=== PATIENT | male | born 1960 | race Caucasian/White ===

== ENCOUNTER 2016-08-28 05:55 | Inpatient (IN) | payer OTHER ==
[2016-08-28] VITALS (7 sets, daily range): BP systolic 114–138; BP diastolic 78–98
[~2016-08-28] VITALS: Ht 177.8 cm; Wt 104.3 kg
[~2016-08-28 05:55] MED LIST: ALBUTEROL0.09 MG/A1 INH; AMLODIPINE BESYL5 M1 PO; BENTYL10 MG PO; FLONASE ALLERG9.9 ML NASB; IMODIUM2 MG PO; LISINOPRIL-HCT1 EAC1 PO; NEXIUM40 M1 PO; NORCO 325 MG-51 TAB PO; SYMBICORT 160/41 PUF INH; SYNTHROID100 MCG PO; VIAGRA25 M1 PO; ZITHROMAX Z-PA250 M1 PO; ZOFRAN4 M1 PO
--- NOTE | 2016-08-28 06:30 | ED PSYCHIATRIC COMPLAINT ---
History of Present Illness General Chief Complaint: General Adult Stated Complaint: WITHDRAWAL FROM ETOH, NUMBNESS IN HANDS/FEET Source: patient, family Exam Limitations: no limitations Vital Signs & Intake/Output Vital Signs & Intake/Output Vital Signs Date Time Temp Pulse Resp B/P B/P Pulse O2 O2 Flow FiO2 Mean Ox Delivery Rate 08/28 1048 97.6 92 20 126/87 08/28 1048 97.6 92 20 126/87 96 Room Air 08/28 0900 97.6 88 20 119/81 08/28 0900 97.6 88 20 119/81 96 Room Air 08/28 0700 97.5 106 20 120/85 08/28 0700 97.5 106 20 120/85 98 Room Air 08/28 0603 97.9 107 20 141/97 95 Room Air Allergies Coded Allergies: NO KNOWN ALLERGIES (07/25/14) Triage Note: Requesting EtOH denies SI states 9 glasses of wine daily last drink was yesterday at 7 PM PT TO ED FROM HOME REQUESTING ETOH DETOX. PT DENIES SI/HI. STATES DRINKS 6-9 GLASSES OF WINE DAILY. LAST DRINK WAS YESTERDAY AT 7 PM. 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 STATES HANDS GET NUMB ANF TINGLY WHEN ALCOHOL LEVEL GETS LOW. DENIES HISTORY OF SEIZURES WITH ETOH WITHDRAWL BUT STATES HE HAS BEEN DRINKINGT MORE THE LAST FEW YEARS. DENIES DRUG USE. PER GIRLFRIEND "HE SAID HE WOULD BLOW HIS BRAINS OUT" PER GIRLFRIEND "HE HAS GUNS IN THE HOUSE" Triage Nurses Notes Reviewed? yes Onset: Gradual Duration: continues in ED Severity: severe HPI: Patient presents for evaluation of alcohol dependence and possible withdrawal. Patient typically drinks 6-8 glasses of wine daily and states his last alcoholic beverage was yesterday evening. He is beginning to feel numbness and tingliness in the extremities he states his typical of early withdrawal symptoms. He denies SI or HI. Patient states that he did have about a year and a half of sobriety number of years ago but then began drinking again due to multiple life stressors. Patient denies any prior history of alcohol withdrawal seizures. (MALA BUSCH,CORWIN Osborne) Reconcile Medications Amlodipine Besylate 5 MG TABLET 1 TAB PO DAILY BP (Reported) Ascorbate Calcium (Vitamin C) 500 MG TABLET 1 TAB PO DAILY VITAMIN SUPPORT ( Reported) Aspirin (Aspirin*) 81 MG TAB.CHEW 1 TAB PO DAILY HEART HEALTH (Reported) Dicyclomine HCl 10 MG CAPSULE 1 TAB PO 4 TIMES/DAY PRN GI (Reported) Esomeprazole (Nexium) 40 MG CAPSULE.DR 1 CAP PO DAILY ACID REFLUX (Reported) Fluticasone Propionate (Flonase Allergy Relief) 50 MCG/ACTUATION SPRAY.SUSP 2 SPRAY NASB DAILY ALLERGIES (Reported) Levothyroxine Sodium (Synthroid) 100 MCG TABLET 1 TAB PO DAILY AC THYROID ( Reported) Lisinopril/Hydrochlorothiazide (Lisinopril-Hctz 20-25 MG Tab) 20 MG-25 MG TABLET 1 TAB PO BID BP (Reported) Multivitamin (Daily Multiple Vitamin) 1 EACH TABLET 1 TAB PO DAILY VITAMIN SUPPORT (Reported) (CHANDLER LUNA MD) Past History Travel History Traveled to [place] past 21 day No Medical History Any Pertinent Medical History? see below for history Cardiovascular: hypertension, syncope, 2 EPISODES OF SYNCOPE. tHE 01/31/2014 AND ONE APPROXIMATELY 2 MONTHS LATER FOR WHICH HE REFUSED TRANSPORT TO THE EMERGENCY DEPARTMENT BY ems. Gastrointestinal: GERD Endocrine: hypothyroidism Surgical History Surgical History: non-contributory Psychosocial History What is your primary language Romanian Tobacco Use: Never used ETOH Use: alcoholic Illicit Drug Use: denies illicit drug use Family History Hx Contributory? No (MALA BUSCH,CORWIN Osborne) Review of Systems Review of Systems Constitutional: Reports: no symptoms. EENTM: Reports: no symptoms. Respiratory: Reports: no symptoms. Cardiovascular: Reports: no symptoms. GI: Reports: no symptoms. Genitourinary: Reports: no symptoms. Musculoskeletal: Reports: no symptoms. Skin: Reports: no symptoms. Neurological/Psychological: Reports: paresthesia. Hematologic/Endocrine: Reports: no symptoms. Immunologic/Allergic: Reports: no symptoms. All Other Systems: Reviewed and Negative (MALA BUSCH,CORWIN Osborne) Physical Exam Physical Exam General Appearance: SEE BELOW Neurological/Psychiatric: SEE BELOW Comments: General: Alert, calm, cooperative Head: Normocephalic, atraumatic Eyes: Normal inspection, no nystagmus, EOMI Ears: Normal inspection Nose: Normal inspection Throat: Moist mucosa Neck: Supple, no goiter Heart: Regular rate and rhythm, no murmurs rubs or gallops Lungs: Clear to auscultation bilaterally with good air entry Abdomen: Soft nontender nondistended, normal bowel sounds Chest: Nontender Extremities: Normal range of motion grossly, mild tremors present, no cyanosis clubbing or edema of the upper extremities Neurologic: cranial nerves II through XII grossly intact, speech clear, gait normal Psychiatric: No apparent delusions or hallucinations, no pressured speech or thought blocking SAD PERSONS Done? patient not suicidal (MALA BUSCH,CORWIN Osborne) Progress Differential Diagnosis: ALCOHOL INTOXICATION, ALCOHOL DEPENDENCE, ALCOHOL WITHDRAWAL Plan of Care: Orders Procedure Date/time Status Regular Diet 08/28 L Active Pathway - chart 08/28 1129 Active House Staff 08/28 1129 Active Patient Data 08/28 1129 Active Code Status 08/28 1129 Active Patient Data 08/28 1124 Active OXYGEN SETUP (GEN) 08/28 1112 Active Saline Lock 08/28 1112 Active Admit to inpatient 08/28 1112 Active Vital Signs 08/28 1112 Active Activity/Ambulation 08/28 1112 Active Code Status 08/28 1112 Complete CIWA 08/28 0630 Active URINE DRUG SCREEN FOR ER ONLY 08/28 0630 Complete MAGNESIUM 08/28 0630 Complete LIPASE 08/28 0630 Complete ETHANOL 08/28 0630 Complete COMPREHENSIVE METABOLIC PANEL 08/28 0630 Complete CBC WITHOUT DIFFERENTIAL 08/28 0630 Complete VTE Mechanical Prophylaxis 08/28 UNK Active Vital Signs 08/28 UNK Active MISTAKE 08/28 UNK Active Intake & Output 08/28 UNK Active Current Medications Sig/Adry Start time Last Medication Dose Stop Time Status Admin Lorazepam 2 MG Q2P PRN 08/28 1115 AC 08/28 (Ativan) 1050 Lorazepam 1 MG Q2P PRN 08/28 1115 AC (Ativan) Laboratory Tests 08/28/16 0718: Serum Alcohol 13.0 08/28/16 0718: Anion Gap 14, Estimated GFR > 60, BUN/Creatinine Ratio 29.0 H, Glucose 140 H, Calcium 9.9, Magnesium 1.6, Total Bilirubin 0.6, AST 126 H, ALT 181 H, Alkaline Phosphatase 108, Total Protein 8.0, Albumin 4.9, Globulin 3.1, Albumin/ Globulin Ratio 1.6, Lipase 256, CBC w Diff NO MAN DIFF REQ, RBC 4.87, MCV 93.1, MCH 32.0 H, RDW 12.8, MPV 7.8, Gran % 57.1, Lymphocytes % 32.6, Monocytes % 8.5 , Eosinophils % 1.2, Basophils % 0.6, Absolute Granulocytes 3.6, Absolute Lymphocytes 2.1, Absolute Monocytes 0.5, Absolute Eosinophils 0.1, Absolute Basophils 0, PUBS MCHC 34.4, Urine Opiates Screen < 100.00, Methadone Screen < 40, Barbiturate Screen < 60, Ur Phencyclidine Scrn < 6.00, Amphetamines Screen < 100, U Benzodiazepines Scrn < 85, Urine Cocaine Screen < 50, Urine Cannabis Screen < 5.00 Comments: 08/28/2016 7:07:29 AM 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 (MALA BUSCH,CORWIN Osborne) Comments: CiWA >16. (CHANDLER LUNA MD) Departure Departure Disposition: STILL A PATIENT Condition: Stable Referrals: ALYSON ASHLEY MD (PCP/Family) Departure Forms: Customer Survey General Discharge Information (MALA BUSCH,CORWIN Osborne) Departure Time of Disposition: 113 Clinical Impression Primary Impression: Alcohol withdrawal delirium Secondary Impressions: Alcohol dependence Qualifiers: Substance use status: in withdrawal Complication of substance- induced condition: with perceptual disturbance Qualified Code: F10.232 - Alcohol dependence with withdrawal with perceptual disturbance Admission Note Spoke With: KOBI BUSCH,MICHAELA Documentation of Exam: Documentation of any treatments & extenuating circumstances including Concerns Regarding Discharge (functional status, medication knowledge or non-compliance, living conditions, etc.) that warrant an admission rather than observation: Benzodiazepine to prevent alcohol withdrawal seizure medication adjustment psychiatric evaluation for alcohol dependence continuing care discharge planning Alcohol Withdrawl Admission ED Alcohol Detox Admission d/t: CIWA Score >15, Acute MedCond D/T Alcohol, Alcohol Hallucinosis (CHANDLER LUNA MD)
[2016-08-28 07:29] LABS: ABSOLUTE BASOPHIL COUNT 0 /CUMM (0.0-0.2); ABSOLUTE EOSINOPHIL COUNT 0.1 /CUMM (0.0-0.7); ABSOLUTE GRANULOCYTE CT 3.6 /CUMM (1.4-6.5); ABSOLUTE LYMPH COUNT 2.1 /CUMM (1.2-3.4); ABSOLUTE MONOCYTE COUNT 0.5 /CUMM (0.10-0.60); BASOPHIL % 0.6 % (0.0-2.0); EOSINOPHIL % 1.2 % (0-5); GRANULOCYTE % 57.1 % (42.2-75.2); HEMATOCRIT 45.3 % (42-52); MEAN CORPUSCULAR HGB CONC 34.4 G/DL (33.0-37.0); MEAN CORPUSCULAR VOLUME 93.1 FL (80.0-94.0); MEAN PLATELET VOLUME 7.8 FL (7.4-10.4); PLATELET COUNT 242 /CUMM (130-400); RBC DISTRIBUTION WIDTH 12.8 % (11.5-14.5); RED BLOOD CELL CT 4.87 /CUMM (4.70-6.10); WHITE BLOOD CELL COUNT 6.3 /CUMM (4.8-10.8)
[2016-08-28] MEDS ORDERED: ASPIRIN81 M4 PO (08:26)
[2016-08-28] MEDS ORDERED: DAILY MULTIPLE1 EACH PO (08:28)
[2016-08-28] MEDS ORDERED: VITAMIN C500 M6 PO (08:28)
[2016-08-28] MEDS ORDERED: DICYCLOMINE HCL10 M1 PO (08:29)
--- NOTE | 2016-08-28 11:28 | History & Physical ---
LELA HARRIS 08/28/16 1128: General Information and HPI MD Statement: I have seen and personally examined CARMENBRIGETTEGORDO and documented this H&P. The patient is a 55 year old M who presented for alcohol detox. Source of Information: patient Exam Limitations: no limitations History of Present Illness: This is a 55-year-old gentleman with past medical history significant for hypertension, GERD, hypothyroidism, EtOH dependence who presents to the hospital for alcohol detox. Per patient, he usually drinks approximately 6-8 glasses of wine every day, last drink was yesterday around 7 PM. Denies any history of alcohol withdrawal. Reports having numbness and tingling in his hands and feet for the past 2 weeks; symptoms improved after drinking alcohol. Reports having unsteady gait for the past few months and mentions that he starts shaking upon standing. Also has mild lower abdominal pain, which is chronic, follows with Dr. Lake. Denies any history of dysarthria, facial droop, denies headache, shortness of breath, chest pain, history of fall, urinary symptoms. Denies SI, HI. Of note he was recently diagnosed with prediabetes. Allergies/Medications Allergies: Coded Allergies: NO KNOWN ALLERGIES (07/25/14) Home Med list Amlodipine Besylate 5 MG TABLET 1 TAB PO DAILY BP (Reported) Aspirin (Aspirin*) 81 MG TAB.CHEW 1 TAB PO DAILY HEART HEALTH (Reported) Dicyclomine HCl 10 MG CAPSULE 1 TAB PO 4 TIMES/DAY PRN GI (Reported) Esomeprazole (Nexium) 40 MG CAPSULE.DR 1 CAP PO DAILY ACID REFLUX (Reported) Fluticasone Propionate (Flonase Allergy Relief) 50 MCG/ACTUATION SPRAY.SUSP 2 SPRAY NASB DAILY ALLERGIES (Reported) Levothyroxine Sodium (Synthroid) 100 MCG TABLET 1 TAB PO DAILY AC THYROID ( Reported) Lisinopril/Hydrochlorothiazide (Lisinopril-Hctz 20-25 MG Tab) 20 MG-25 MG TABLET 1 TAB PO BID BP (Reported) Loratadine (Claritin) 10 MG TABLET 1 TAB PO DAILY ALLERGY (Reported) Multivitamin (Daily Multiple Vitamin) 1 EACH TABLET 1 TAB PO DAILY VITAMIN SUPPORT (Reported) Past History Travel History Traveled to [place] past 21 day No Medical History Cardiovascular: hypertension, syncope, 2 EPISODES OF SYNCOPE. tHE 01/31/2014 AND ONE APPROXIMATELY 2 MONTHS LATER FOR WHICH HE REFUSED TRANSPORT TO THE EMERGENCY DEPARTMENT BY [facility]. Gastrointestinal: GERD Endocrine: hypothyroidism Surgical History Surgical History: non-contributory Past Family/Social History Psychosocial History ETOH Use: alcoholic Illicit Drug Use: denies illicit drug use Review of Systems Review of Systems Constitutional: Reports: no symptoms. Cardiovascular: Denies: chest pain, edema, orthopena, palpitations, peripheral edema, syncope. Respiratory: Reports: no symptoms. GI: Reports: see HPI, abdominal pain. Denies: diarrhea, distention, bowel incontinence, nausea, bloody stool, changes in stool, vomiting, steatorrhea. Genitourinary: Reports: no symptoms. Musculoskeletal: Reports: no symptoms. Skin: Reports: no symptoms. Neurological/Psychological: Reports: no symptoms. Hematologic/Endocrine: Reports: no symptoms. Immunologic/Allergic: Reports: no symptoms. All Other Systems: Reviewed and Negative Exam & Diagnostic Data Last 24 Hrs of Vital Signs/I&O Vital Signs Date Time Temp Pulse Resp B/P B/P Pulse O2 O2 Flow FiO2 Mean Ox Delivery Rate 08/28 1222 97.6 91 18 138/90 96 Room Air 08/28 1221 97.6 91 18 138/90 08/28 1048 97.6 92 20 126/87 08/28 1048 97.6 92 20 126/87 96 Room Air 08/28 0900 97.6 88 20 119/81 08/28 0900 97.6 88 20 119/81 96 Room Air 08/28 0700 97.5 106 20 120/85 08/28 0700 97.5 106 20 120/85 98 Room Air 08/28 0603 97.9 107 20 141/97 95 Room Air Intake & Output 08/28 1600 08/28 0800 08/28 0000 Intake Total 0 Output Total Balance 0 Intake, Oral 0 Patient 228 lb Weight Physical Exam General Appearance Alert, Oriented X3, Cooperative, anxious Skin No Rashes, No Breakdown, No Significant Lesion HEENT Atraumatic, PERRLA, EOMI, Mucous Membr. moist/pink Neck Supple, No JVD, No thryomegaly, +2 Carotid Pulse wo Bruit, No LAD Lymphatic Axillary nl, Cervical nl Cardiovascular Regular Rate, Normal S1, Normal S2, No Murmurs, Gallops, Rubs Lungs Clear to Auscultation, Normal Air Movement Abdomen Normal Bowel Sounds, Soft, No Tenderness, No Hepatospenomegaly, No Masses Neurological Normal Speech, Strength at 5/5 X4 Ext, Normal Tone, Sensation Intact, Cranial Nerves 3-12 NL, Reflexes 2+, no resting tremor Extremities No Clubbing, No Cyanosis, No Edema, Normal Pulses, No Tenderness/ Swelling Vascular Normal Pulses, Pulses Symmetrical Last 24 Hrs of Labs/Gerard: Laboratory Tests 08/28/16717: Serum Alcohol 13.0 08/28/16717: Anion Gap 14, Estimated GFR > 60, BUN/Creatinine Ratio 29.0 H, Glucose 140 H, Calcium 9.9, Magnesium 1.6, Total Bilirubin 0.6, AST 126 H, ALT 181 H, Alkaline Phosphatase 108, Total Protein 8.0, Albumin 4.9, Globulin 3.1, Albumin/ Globulin Ratio 1.6, Lipase 256, Vitamin B12 Pending, Folate Pending, CBC w Diff NO MAN DIFF REQ, RBC 4.87, MCV 93.1, MCH 32.0 H, RDW 12.8, MPV 7.8, Gran % 57.1 , Lymphocytes % 32.6, Monocytes % 8.5, Eosinophils % 1.2, Basophils % 0.6, Absolute Granulocytes 3.6, Absolute Lymphocytes 2.1, Absolute Monocytes 0.5, Absolute Eosinophils 0.1, Absolute Basophils 0, PUBS MCHC 34.4, Urine Opiates Screen < 100.00, Methadone Screen < 40, Barbiturate Screen < 60, Ur Phencyclidine Scrn < 6.00, Amphetamines Screen < 100, U Benzodiazepines Scrn < 85, Urine Cocaine Screen < 50, Urine Cannabis Screen < 5.00 Assessment/Plan Assessment: This is a 55-year-old gentleman with past medical history significant for hypertension, GERD, hypothyroidism, EtOH dependence who presents to the hospital for alcohol detox. Labs: Transaminitis, glucose 140 otherwise unremarkable, Abdominal ultrasound on June 14 shows diffuse heterogeneous abnormal echotexture is noted within the liver, consistent with diffuse liver disease without any sonographic detectable superimposed discrete focal abnormality.Sonographically unremarkable gallbladder and biliary tree. Problem list * EtOH dependence * Numbness/tingling in upper and lower extremities * Transaminitis * Lower abdominal discomfort * History of hypertension * History of hypothyroidism * History of GERD Plan * Vital signs per protocol * IV Ativan per CIWA * PO Ativan 2 mg every 6 hr * Will check magnesium, folate, vitamin B12 levels * Will check head CT * Will continue home medications of aspirin, lisinopril, hydrochlorothiazide, levothyroxine * consider neurology consult if numbness/tingling not improve/worsen * Psych consult * Social consult * DVT and GI prophylaxis * Patient is full code As Ranked By This Provider Problem List: 1. Alcohol dependence Qualifiers Substance use status: in withdrawal Complication of substance-induced condition : with perceptual disturbance Qualified Code: F10.232 - Alcohol dependence with withdrawal with perceptual disturbance Core Measures/Miscellaneous Acute Coronary Syndrome ACS Diagnosis: No Cerebrovascular Accident CVA/TIA Diagnosis: No Congestive Heart Failure CHF Diagnosis: No VTE (View Protocol) VTE Risk Factors: Age > 40 [facility] d/t: No contraindications No VTE Pharm Prophylaxis d/t: No contraindications VTE Diagnosis: No VTE Type: NONE VTE Confirmed by (Test): NONE Sepsis (View Protocol) Severe Sepsis Present: No Septic Shock Septic Shock Present: No Miscellaneous Documentation Attending Case Discussed With: AURORA LANE MD Primary Care Physician: ALYSON ASHLEY MD Patient sees these Specialists GI Level of Patient Care: General Medicine AURORA LANE MD 08/28/16 1652: Attending MD Review Statement Attending Statement Attending MD Statement: examined this patient, discuss w/resident/PA/RESEARCH CHEF, agreed w/resident/PA/RESEARCH CHEF, reviewed EMR data (avail) Attending Assessment/Plan: 55M PMH EtOH abuse presenting with hand numbness and paresthesia, unsteady gait, and agitation in the setting of alcohol withdrawal. Labs unremarkable, CT head shows mild cerebral atrophy inappropriate for patient's age. Plan - Admit to general medicine - Ativan taper and PRN - IV hydration - Monitor electrolytes - Check TSH, B12 - Outpatient neurology follow up - SOcial work consult - DVT Ppx
[2016-08-28] MEDS ORDERED: CLARITIN10 M1 PO (11:44)
--- NOTE | 2016-08-28 13:36 | CT SCAN REPORT ---
EXAMINATION: CT HEAD WITHOUT CONTRAST CLINICAL INFORMATION: Numbness and tingling in extremities. COMPARISON: The report from 02/25/2014 is reviewed. Images are not available for immediate comparison. TECHNIQUE: Contiguous axial images of the brain were obtained without IV contrast. DLP: 641 mGy-cm. FINDINGS: There are no pathologic extra-axial fluid collections. The lateral, third, fourth ventricles are mildly prominent and concordant with the appearance of the sulci. There is no evidence for acute intraparenchymal hemorrhage or infarct. There is neither mass nor mass effect. There is no shift of midline structures. The paranasal sinuses and mastoid air cells are clear. There are no osseous lesions. IMPRESSION: No evidence for acute intracranial injury. There is mild cerebral atrophy, equivocally advanced in consideration of the patient's age.
--- NOTE | 2016-08-28 16:53 | Admission Certification ---
Admission Certification Certification Statement - As attending physician, I certify that at the time of - admission, based on clinical presentation, severity of - symptoms, need for further diagnostic testing and - therapeutic interventions, and risk of adverse outcomes - without in-hospital treatment, in my clinical assessment, - this patient requires an acute hospital stay for a minimum - of two nights or longer. I have also considered psychsocial - factors such as support system, advanced age, financial - issues, cognitive issues, and failed out-patient treatments, - past re-admission history, safety of patient, and lack of - compliance as applicable. Specific rationale supporting this admission is: Alcohol withdrawal with unsteady gait and focal neurological signs
[2016-08-29] VITALS (8 sets, daily range): BP systolic 122–138; BP diastolic 84–98
--- NOTE | 2016-08-29 07:07 | PN- Housestaff ---
TK BUSCH,MILADYS 08/29/16 0706: Subjective Follow-up For: Alcohol withdrawl Subjective: I saw and examined the patient today monring He is lying in the bed, reports his night was good. He is very distressed about his pain and instablility with walking. Currently he denies any lightheadedness and dizziness with walking. Subjective pins and needles sensation in both the hands. His CIWA scores overnight are between 3-8, highest being 16 yesterday morning. Review of Systems Constitutional: Reports: see HPI. Comments: ROS negative except the above. Objective Last 24 Hrs of Vital Signs/I&O Vital Signs Date Time Temp Pulse Resp B/P B/P Pulse O2 O2 Flow FiO2 Mean Ox Delivery Rate 08/29 0606 97.7 86 22 128/86 95 08/29 0536 76 124/84 08/29 0400 97.8 76 22 124/84 08/29 0200 97.8 76 22 124/84 08/29 0152 97.8 76 22 124/84 92 Room Air 08/29 0000 98.1 80 19 138/98 08/28 2151 98.1 80 19 138/98 95 Room Air 08/28 1715 98.3 94 18 122/78 08/28 1715 98.3 94 18 122/78 95 Room Air 08/28 1714 94 122/78 08/28 1310 98.5 100 20 114/90 92 Room Air 08/28 1222 97.6 91 18 138/90 96 Room Air 08/28 1221 97.6 91 18 138/90 08/28 1048 97.6 92 20 126/87 08/28 1048 97.6 92 20 126/87 96 Room Air 08/28 0900 97.6 88 20 119/81 08/28 0900 97.6 88 20 119/81 96 Room Air Intake & Output 08/29 0800 08/29 0000 08/28 1600 Intake Total 490 1700 Output Total Balance 490 1700 Intake, IV 10 1000 Intake, Oral 480 700 Number 0 Bowel Movements Patient 104.326 kg Weight Physical Exam General Appearance: Alert, Oriented X3, Cooperative, No Acute Distress Skin: No Rashes, No Breakdown HEENT: Atraumatic, PERRLA, EOMI Neck: Supple Cardiovascular: Normal S1, Normal S2 Lungs: Clear to Auscultation, Normal Air Movement Abdomen: Normal Bowel Sounds, Soft, No Tenderness Neurological: Normal Speech, Sensation Intact Current Medications: Current Medications Sig/Adry Start time Last Medication Dose Route Stop Time Status Admin Amlodipine Besylate 5 MG DAILY 08/29 1000 AC PO Aspirin 81 MG DAILY 08/28 1424 AC 08/28 PO 1713 Cyanocobalamin 1,000 MCG DAILY 08/29 1000 AC PO Cyanocobalamin/ 1 BAG DAILY 08/28 1153 DC 08/28 Thiamine/Pyridoxine IV 08/28 1952 1220 Sodium Chloride 1,000 ML Folic Acid 1 MG DAILY 08/29 1000 AC PO Hydrochlorothiazide 25 MG 0700,1700 08/29 0700 AC 08/29 PO 0536 Hydrochlorothiazide 25 MG BID 08/28 2200 DC PO Hydrochlorothiazide 25 MG 0500,1700 08/28 1700 DC 08/28 PO 1714 Ibuprofen 0 .STK-MED ONE 08/28 0753 DC PO Ibuprofen 800 MG ONCE ONE 08/28 0745 DC 08/28 PO 08/28 0746 0750 Levothyroxine Sodium 0.1 MG DAILY AC 08/29 0700 AC 08/29 PO 0537 Lisinopril 20 MG 0700,1700 08/29 0700 AC 08/29 PO 0536 Lisinopril 20 MG BID 08/28 2200 DC PO Lisinopril 20 MG 0500,1700 08/28 1700 DC 08/28 PO 1714 Lorazepam 0 .STK-MED ONE 08/28 1305 DC PO Lorazepam 0 .STK-MED ONE 08/28 1216 DC PO Lorazepam 2 MG Q6 08/28 1200 AC 08/29 PO 0535 Lorazepam 0 Q1P PRN 08/28 1200 AC 08/28 IV 2112 Lorazepam 2 MG Q2P PRN 08/28 1115 DC 08/28 PO 1050 Lorazepam 1 MG Q2P PRN 08/28 1115 DC PO Lorazepam 0 .STK-MED ONE 08/28 1057 DC PO Multivitamins 1 TAB DAILY 08/29 1000 AC PO Omeprazole 0 .STK-MED ONE 08/28 1234 DC PO Omeprazole 40 MG DAILY AC 08/28 1222 AC 08/29 PO 0536 Ondansetron HCl 0 .STK-MED ONE 08/28 0753 DC PO Ondansetron HCl 4 MG ONCE ONE 08/28 0745 DC 08/28 PO 08/28 0746 0750 Thiamine HCl 100 MG DAILY 08/29 1000 AC PO Thiamine HCl 0 .STK-MED ONE 08/28 1213 DC .ROUTE Thiamine HCl 0 .STK-MED ONE 08/28 1205 DC .ROUTE Last 24 Hrs of Lab/Gerard Results Last 24 Hrs of Labs/Mics: Laboratory Tests 08/29/16 0746: Anion Gap 9, Estimated GFR > 60, BUN/Creatinine Ratio 27.0 H Assessment/Plan Assessment: This is a 55-year-old M with PMH significant for hypertension, GERD, hypothyroidism, EtOH dependence who presents to the hospital for alcohol detox. Labs: Transaminitis, glucose 140 otherwise unremarkable, Abdominal ultrasound on June 14 shows diffuse heterogeneous abnormal echotexture is noted within the liver, consistent with diffuse liver disease without any sonographic detectable superimposed discrete focal abnormality.Sonographically unremarkable gallbladder and biliary tree. Admitted to general medicine floor Alcohol detoxification * Continue CIWA protocol with Ativan 2mg Q6 and PRN doses * Received a total of 14mg ativan over the past 24hrs, so we continue current regimen for now. CIWA between 3-9 highest 16 * Electrolytes are normal, B12 on lower side, TSH and free T4 on normal. * Continue B12 supplements, folic acid, thiamine, multivitamin. 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 History of hypertension * Continue lisinopril and HCTZ BID * BP adequately controlled hypothyroidism: continue levothyroxine 100mcg daily GERD: conitnue omeprazole DVT prophylaxis ALPS Code Status Full Code Problem List: 1. Abdominal pain 2. Elevated transaminase level 3. Alcohol dependence Pain Ratin Pain Location: abdomen, extremities Pain Goal: Pain 4 or less Pain Plan: Tylenol Tomorrow's Labs & Rationales: bep to monitor electrolytes and white count [address] L[address] MD 08/29/16 1130: Attending MD Review Statement Attending Statement Attending MD Statement: examined this patient, discuss w/resident/PA/DISEASE MANAGEMENT NURSE, agreed w/resident/PA/DISEASE MANAGEMENT NURSE, reviewed EMR data (avail) Attending Assessment/Plan: 55M PMH EtOH abuse presenting with hand numbness and paresthesia, unsteady gait, and agitation in the setting of alcohol withdrawal. Labs unremarkable, CT head shows mild cerebral atrophy inappropriate for patient's age. Required multiple PRN doses of Ativan overnight. No other acute events. Plan - Continue on general medicine - Continue current standing Ativan dose for now, will consider taper tomorrow if decreased number of PRN doses - IV hydration - Monitor electrolytes - Check TSH, B12 - Outpatient neurology follow up - Social work consult - DVT Ppx
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
[2016-08-30] VITALS (14 sets, daily range): BP systolic 114–148; BP diastolic 74–102
--- NOTE | 2016-08-30 06:52 | PN- Housestaff ---
See Addendum TK BUSCH,MILADYS 08/30/16 0649: Subjective Follow-up For: Alcohol withdrawl Cerebellar atrophy Subjective: I saw and examined the patient today morning patient is very anxious, couldnt sleep overnight. Girl friend at bedside (one of our house staff), he did have abdominal pain in the lower abdominal region. No nausea, vomiting, diarrhea overnight. No fever, chills. Review of Systems Constitutional: Reports: see HPI. Objective Last 24 Hrs of Vital Signs/I&O Vital Signs Date Time Temp Pulse Resp B/P B/P Pulse O2 O2 Flow FiO2 Mean Ox Delivery Rate 08/30 0649 98.0 72 16 120/80 95 Room Air 08/30 0615 70 114/74 08/30 0600 98.0 70 16 114/74 08/30 0440 98.0 70 16 114/74 08/30 0436 98.0 70 16 114/74 96 Room Air 08/30 0000 98.1 85 18 122/90 08/29 2148 98.1 85 18 122/90 93 08/29 1739 140/90 08/29 1415 98.2 90 22 134/90 94 Room Air 08/29 0823 160/100 Intake & Output 08/30 0800 08/30 0000 08/29 1600 Intake Total 750 450 Output Total Balance 750 450 Intake, IV 30 Intake, Oral 720 450 Number 0 Bowel Movements Physical Exam General Appearance: Alert, Oriented X3, Cooperative Skin: No Rashes, No Breakdown HEENT: Atraumatic, PERRLA, EOMI Neck: Supple Cardiovascular: Normal S1, Normal S2 Lungs: Clear to Auscultation, Normal Air Movement Abdomen: Normal Bowel Sounds, Soft, No Tenderness Neurological: Normal Speech, Strength at 5/5 X4 Ext, Normal Tone, Sensation Intact, Cranial Nerves 3-12 NL Extremities: No Clubbing, No Cyanosis, No Edema Vascular: Normal Pulses, Pulses Symmetrical Current Medications: Current Medications Sig/Adry Start time Last Medication Dose Route Stop Time Status Admin Amlodipine Besylate 5 MG DAILY 08/29 1000 AC 08/30 PO 1019 Aspirin 81 MG DAILY 08/28 1424 AC 08/30 PO 1018 Cyanocobalamin 1,000 MCG DAILY 08/29 1000 AC 08/30 PO 1019 Folic Acid 1 MG DAILY 08/29 1000 AC 08/30 PO 1018 Hydrochlorothiazide 25 MG 0700,1700 06/29 0700 AC 08/30 PO 0614 Ibuprofen 400 MG ONCE ONE 08/29 2100 DC 08/29 PO 08/29 2101 2131 Levothyroxine Sodium 0.1 MG DAILY AC 08/29 0700 AC 08/30 PO 0615 Lisinopril 20 MG 0700,1700 08/29 0700 AC 08/30 PO 0615 Lorazepam 2 MG Q8 08/30 1400 AC 08/30 PO 1410 Lorazepam 1 MG .STK-MED ONE 08/29 2359 DC PO 08/30 0000 Lorazepam 1 MG .STK-MED ONE 08/29 2352 DC PO 08/29 2353 Lorazepam 2 MG .STK-MED ONE 08/29 1735 DC PO 08/29 1736 Lorazepam 2 MG Q6 08/28 1200 DC 08/30 PO 0614 Lorazepam 0 Q1P PRN 08/28 1200 AC 08/30 IV 0916 Multivitamins 1 TAB DAILY 08/29 1000 AC 08/30 PO 1019 Omeprazole 40 MG DAILY AC 08/28 1222 AC 08/30 PO 0615 Potassium Chloride 40 MEQ ONCE ONE 08/30 1445 DC PO 08/30 1446 Thiamine HCl 100 MG DAILY 08/29 1000 AC 08/30 PO 1019 Last 24 Hrs of Lab/Gerard Results Last 24 Hrs of Labs/Mics: Laboratory Tests 08/30/16 0945: Anion Gap 10, Estimated GFR > 60, BUN/Creatinine Ratio 25.0, Total Bilirubin 0.7 , Direct Bilirubin 0.3, AST 168 H, ALT 224 H, Alkaline Phosphatase 90, Total Protein 7.3, Albumin 4.3, Hepatitis A IgM Ab Pending, Hep Bs Antigen Pending, Hep B Core IgM Ab Conf Pending, Hepatitis C Antibody Pending Assessment/Plan Assessment: Patient is a 55-year-old M with PMH significant for hypertension, GERD, hypothyroidism, EtOH dependence who presents to the hospital for alcohol detox. Labs: Transaminitis, glucose 140 otherwise unremarkable, Abdominal ultrasound on June 14 shows diffuse heterogeneous abnormal echotexture is noted within the liver, consistent with diffuse liver disease without any sonographic detectable superimposed discrete focal abnormality.Sonographically unremarkable gallbladder and biliary tree. Admitted to general medicine floor Alcohol detoxification * Continue CIWA protocol with Ativan 2mg Q8, and PRN per protocol * Received a total of 12.5mg ativan over the past 24hrs, so we continue current regimen for now. CIWA between 3-11 overnight. * Electrolytes are normal, B12 on lower side, TSH and free T4 on normal. * Continue B12 supplements, folic acid, thiamine, multivitamin. 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 History of hypertension * Continue lisinopril and HCTZ BID * BP adequately controlled hypothyroidism: levothyroxine 100mcg daily GERD: omeprazole DVT prophylaxis ALPS Code Status Full Code Problem List: 1. Alcohol dependence 2. Elevated transaminase level 3. Cerebellar atrophy Pain Ratin Pain Location: abdomen Pain Goal: Pain 4 or less Pain Plan: tylenol Tomorrow's Labs & Rationales: bep to monitor electrolytes LFT's to monitor transaminitis [address] MD 08/30/16 1053: Attending MD Review Statement Attending Statement Attending MD Statement: examined this patient, discuss w/resident/PA/MOSS PICKER, agreed w/resident/PA/MOSS PICKER, reviewed EMR data (avail) Attending Assessment/Plan: 55M PMH EtOH abuse presenting with hand numbness and paresthesia, unsteady gait, and agitation in the setting of alcohol withdrawal. Labs unremarkable, CT head shows mild cerebral atrophy inappropriate for patient's age. Required multiple PRN doses of Ativan overnight. No other acute events. Plan - Continue on general medicine - Taper Ativan, continue PRN - IV hydration - Monitor electrolytes - Check TSH, B12 - Outpatient neurology follow up - Social work consult - DVT Ppx
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
--- NOTE | 2016-08-30 16:26 | Patient Discharge Instructions ---
Discharge Instructions General Discharge Information You were seen/treated for: alcohol withdrawl cerebellar atrophy Special Instructions: Please follow up with your PCP in a week Please follow up with as an outpatient Please call the number given for follow up with [facility] for outpatient therapy Diet Continue normal diet: Yes Activity Full Activity/No Limits: Yes Acute Coronary Syndrome Inclusion Criteria At DC or during hospital stay patient has or had the following: ACS DIAGNOSIS No Discharge Core Measures Meds if any: Prescribed or Continued at Discharge Meds if any: NOT Prescribed or Continued at Discharge Congestive Heart Failure Inclusion Criteria At DC or during hospital stay patient has or had the following: CHF DIAGNOSIS No Discharge Core Measures Meds if any: Prescribed or Continued at Discharge Meds if any: NOT Prescribed or Continued at Discharge Cerebrovascular accident Inclusion Criteria At DC or during hospital stay patient has or had the following: CVA/TIA Diagnosis No Discharge Core Measures Meds if any: Prescribed or Continued at Discharge Meds if any: NOT Prescribed or Continued at Discharge Venous thromboembolism Inclusion Criteria VTE Diagnosis No VTE Type NONE VTE Confirmed by (Test) NONE Discharge Core Measures - Per Current guidelines, there needs to be overlap - treatment for the first 5 days of Warfarin therapy. - If discharged on Warfarin prior to 5 days of - overlap therapy, the patient will need to be - assessed for post discharge needs including - *Post discharge parental anticoagulation - *Warfarin and/or parental anticoagulation education - *Follow up date to check INR post discharge At least 5 days overlap therapy as Inpatient No Meds if any: Prescribed or Continued at Discharge Note: Overlap Therapy is Warfarin and Anticoagulant Meds if any: NOT Prescribed or Continued at Discharge
[2016-08-31 06:58] VITALS: BP 118/79
--- NOTE | 2016-08-31 10:04 | PN- Housestaff ---
KEMI BUSCH,[facility] 08/31/16 1004: Subjective Follow-up For: Alcohol Withdrawl Subjective: I saw and examined the patient today morning. patient is still anxious. No nausea, vomiting, diarrhea overnight. No fever, chills. PT evaluated yesterday ambulating fine. Review of Systems Constitutional: Denies: see HPI. Objective Last 24 Hrs of Vital Signs/I&O Vital Signs Date Time Temp Pulse Resp B/P B/P Pulse O2 O2 Flow FiO2 Mean Ox Delivery Rate 08/31 1049 84 147/79 08/31 0658 97.8 76 20 118/79 97 Room Air 08/31 0548 76 118/79 08/30 2308 98.3 107 20 148/102 95 Room Air 08/30 1800 97.7 74 18 138/80 08/30 1629 74 138/80 08/30 1600 97.7 74 18 138/80 08/30 1440 97.7 74 18 138/80 96 Room Air 08/30 1400 97.7 74 18 138/80 Intake & Output 08/31 1600 08/31 0800 08/31 0000 Intake Total 60 600 Output Total Balance 60 600 Intake, Oral 60 600 Physical Exam General Appearance: Alert, Oriented X3, Cooperative Other Physical Findings: General Appearance Alert, Oriented X3, Cooperative, No Acute Distress Skin No Rashes HEENT Atraumatic, PERRLA, EOMI Neck Supple, No JVD Cardiovascular Regular Rate, Normal S1, Normal S2, No Murmurs Lungs Clear to Auscultation, Normal Air Movement Abdomen Normal Bowel Sounds, Soft, No Tenderness, No Hepatospenomegaly, No Masses Neurological Normal Gait, Normal Speech, Strength at 5/5 X4 Ext, Normal Tone, Sensation Intact Extremities No Clubbing, No Cyanosis, No Edema, Normal Pulses, Normal Capillary Refill Vascular Normal Pulses Current Medications: Current Medications Sig/Adry Start time Last Medication Dose Route Stop Time Status Admin Amlodipine Besylate 5 MG DAILY 08/29 1000 AC 08/31 PO 1049 Aspirin 81 MG DAILY 08/28 1424 AC 08/31 PO 1046 Cyanocobalamin 1,000 MCG DAILY 08/29 1000 AC 08/31 PO 1047 Folic Acid 1 MG DAILY 08/29 1000 AC 08/31 PO 1046 Hydrochlorothiazide 25 MG 0700,1700 08/29 0700 AC 08/31 PO 0547 Ibuprofen 400 MG ONCE ONE 08/30 2014 DC 08/30 PO 08/30 Levothyroxine Sodium 0.1 MG DAILY AC 08/29 0700 AC 08/31 PO 0548 Lisinopril 20 MG 0700,1700 08/29 0700 AC 08/31 PO 0548 Lorazepam 1.5 MG Q8 08/31 1400 AC PO Lorazepam 2 MG Q8 08/30 1400 DC 08/31 PO 0548 Lorazepam 0 Q1P PRN 08/28 1200 AC 08/30 IV 0916 Magnesium Oxide 400 MG ONE ONE 08/30 1600 DC 08/30 PO 08/30 1601 1735 Multivitamins 1 TAB DAILY 08/29 1000 AC 08/31 PO 1046 Omeprazole 40 MG DAILY AC 08/28 1222 AC 08/31 PO 0547 Potassium Chloride 40 MEQ ONCE ONE 08/30 1600 DC 08/30 PO 08/30 1601 1734 Potassium Chloride 40 MEQ ONCE ONE 08/30 1445 DC 08/30 PO 08/30 1446 1618 Thiamine HCl 100 MG DAILY 08/29 1000 AC 08/31 PO 1047 Last 24 Hrs of Lab/Gerard Results Last 24 Hrs of Labs/Mics: Laboratory Tests 08/31/16 0610: Anion Gap 13, Estimated GFR > 60, BUN/Creatinine Ratio 24.0, Total Bilirubin 0.5 , Direct Bilirubin 0.3, AST 126 H, ALT 215 H, Alkaline Phosphatase 156 H, Total Protein 7.2, Albumin 4.1, Triglycerides 166 H, Cholesterol 207 H, LDL Cholesterol, Calc 113, HDL Cholesterol 61 H, Cholesterol/HDL Ratio 3 Assessment/Plan Assessment: Patient is a 55-year-old M with PMH significant for hypertension, GERD, hypothyroidism, EtOH dependence who presents to the hospital for alcohol detox. Abdominal ultrasound on June 14 shows diffuse heterogeneous abnormal echotexture is noted within the liver, consistent with diffuse liver disease without any sonographic detectable superimposed discrete focal abnormality.Sonographically unremarkable gallbladder and biliary tree. Admitted to general medicine floor Alcohol detoxification * Continue CIWA protocol with Ativan tapered from 2mg to 1.5mg Q8 PO, and PRN per protocol * CIWA between 3-11 overnight.. * Continue B12 supplements, folic acid, thiamine, multivitamin. 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 * Need outpatient neurology follow up Transaminitis * AST/ALT at admission were 126/181 --> 126/215 -- TRENDING DOWN * we will trend them for now. Abdominal Ultrasound to rule out liver cirrhosis/Acites History of hypertension * Continue lisinopril and HCTZ BID * BP adequately controlled Hypothyroidism: levothyroxine 100mcg daily GERD: omeprazole DVT prophylaxis ALPS Code Status Full Code Problem List: 1. Cerebellar atrophy 2. Alcohol dependence Pain Ratin Pain Location: none Pain Goal: Pain 4 or less Pain Plan: none Tomorrow's Labs & Rationales: None. Labs Stable GLENN BUSCH,UMAIR 08/31/16 1048: Attending MD Review Statement Attending Statement Attending MD Statement: examined this patient, discuss w/resident/PA/NURSE TECH, agreed w/resident/PA/NURSE TECH, reviewed EMR data (avail), discussed with nursing, reviewed images Attending Assessment/Plan: 55-year-old male with past medical history of hypertension on Norvasc lisinopril and hydrochlorothiazide was here with acute alcohol withdrawal and likely alcoholic transaminitis. We have him on his regular scheduled Ativan and with tapering it by 25% today. He was on 2 mg every 8hr of Ativan on 08/30 and today we have him on 1.5 every 8hr. Social work has been talking to him about outpatient EtOH treatment options. His transaminitis hasn't increased and is stable at this point I don't need think we need to check it daily, but that needs to be followed up as an outpatient. He appears to be prediabetic with a hemoglobin A1c of 6.2 and that needs outpatient follow-up as well.
--- NOTE | 2016-08-31 13:16 | ULTRASOUND REPORT ---
EXAMINATION: US ABDOMEN COMPLETE CLINICAL INFORMATION: Admitted for withdrawal. Abdominal pain. Rule out cirrhosis or ascites. History of alcohol abuse. COMPARISON: Limited abdominal ultrasound 06/14/2016. Selected images CT abdomen and pelvis 02/25/2014. TECHNIQUE: Real-time imaging of the abdominal viscera. FINDINGS: PANCREAS: Obscured by bowel gas. ABDOMINAL AORTA: The proximal segment is normal in caliber. INFERIOR VENA CAVA: Visualized portions are normal. LIVER: The liver is mildly enlarged but is diffusely increased in echogenicity. No dilatation of intrahepatic bile ducts. No evidence of mass. GALLBLADDER: Normal. The gallbladder is physiologically distended without evidence of stones, sludge, polyps, wall thickening or pericholecystic fluid. COMMON BILE DUCT: Normal in caliber measuring 0.5 cm in diameter. RIGHT KIDNEY: Normal. No hydronephrosis. No renal calculi or focal parenchymal lesions. The kidney measures 11.5 cm in maximum dimension. LEFT KIDNEY: Normal. No hydronephrosis. No renal calculi or focal parenchymal lesions. The kidney measures 11.0 cm in maximum dimension. SPLEEN: Normal. The spleen measures 11.2 cm in maximum dimension. FREE FLUID: None. IMPRESSION: Mild hepatomegaly with evidence of hepatic steatosis. No sonographic findings of cirrhosis. No associated ascites. No evidence of cholelithiasis or biliary dilatation. The midline structures are obscured by bowel gas.
[2016-08-31 15:00] VITALS: BP 122/80
[2016-08-31 22:00] VITALS: BP 115/80
[2016-09-01 06:42] VITALS: BP 151/95
--- NOTE | 2016-09-01 10:57 | PN- Att Addend ---
Attending Addendum Attending Brief Note We are continuing with the Ativan taper and he is now down to 1 mg every 8 today and he'll be at 1 mg every 12 tomorrow. His hypertension is being treated with his outpatient doses of Norvasc lisinopril and hydrochlorothiazide and the plan is follow-up social work in a.m. for outpatient alcohol rehabilitation options.
--- NOTE | 2016-09-01 11:38 | PN- Housestaff ---
Subjective Follow-up For: Alcohol withdrawal Subjective: Patient is sitting comfortably in his bed. Denies any nausea, vomiting, diarrhea overnight. No fever or chills. Review of Systems Constitutional: Denies: see HPI. Objective Last 24 Hrs of Vital Signs/I&O Vital Signs Date Time Temp Pulse Resp B/P B/P Pulse O2 O2 Flow FiO2 Mean Ox Delivery Rate 09/01 0749 148/88 09/01 0642 97.4 79 20 151/95 98 Room Air 09/01 0548 79 151/94 07 2200 98.1 83 18 115/80 07 2200 98.1 83 18 115/80 97 Room Air 08/31 1802 105 150/100 07 1500 97.5 87 19 122/80 96 Intake & Output 09/01 1600 09/01 0800 09/01 0000 Intake Total 480 250 Output Total Balance 480 250 Intake, Oral 480 250 Physical Exam General Appearance: Alert, Oriented X3, Cooperative Other Physical Findings: Skin No Rashes HEENT Atraumatic, PERRLA, EOMI Neck Supple, No JVD Cardiovascular Regular Rate, Normal S1, Normal S2, No Murmurs Lungs Clear to Auscultation, Normal Air Movement Abdomen Normal Bowel Sounds, Soft, No Tenderness, No Hepatospenomegaly, No Masses Neurological Normal Gait, Normal Speech, Strength at 5/5 X4 Ext, Normal Tone, Sensation Intact Extremities No Clubbing, No Cyanosis, No Edema, Normal Pulses, Normal Capillary Refill Vascular Normal Pulses Current Medications: Current Medications Sig/Adry Start time Last Medication Dose Route Stop Time Status Admin Amlodipine Besylate 5 MG DAILY 08/29 1000 AC 09/01 PO 0749 Aspirin 81 MG DAILY 08/28 1424 AC 09/01 PO 0749 Cyanocobalamin 1,000 MCG DAILY 08/29 1000 AC 09/01 PO 0747 Folic Acid 1 MG DAILY 08/29 1000 AC 09/01 PO 0748 Hydrochlorothiazide 25 MG 0700,1700 08/29 07 AC 09/01 PO 0548 Ibuprofen 400 MG ONCE ONE 08/31 2014 DC 08/31 PO 08/31 Levothyroxine Sodium 0.1 MG DAILY AC 08/29 0700 AC 09/01 PO 0548 Lisinopril 20 MG 0700,1700 08/29 0700 AC 09/01 PO 0548 Lorazepam 1 MG Q12H 09/02 1800 AC PO 09/03 0601 Lorazepam 1 MG Q8 09/01 1400 AC 09/01 PO 09/02 0601 1417 Lorazepam 1.5 MG Q8 08/31 1400 DC 09/01 PO 09/01 0601 0548 Lorazepam 0 Q1P PRN 08/28 1200 AC 08/31 IV 1954 Multivitamins 1 TAB DAILY 08/29 1000 AC 09/01 PO 0748 Omeprazole 40 MG DAILY AC 08/28 1222 AC 09/01 PO 0549 Simethicone 40 MG ONCE ONE 08/31 1500 DC PO 08/31 1501 Thiamine HCl 100 MG DAILY 08/29 1000 AC 09/01 PO 0748 Assessment/Plan Assessment: Patient is a 55-year-old M with PMH significant for hypertension, GERD, hypothyroidism, EtOH dependence who presents to the hospital for alcohol detox. Abdominal ultrasound on June 14 shows diffuse heterogeneous abnormal echotexture is noted within the liver, consistent with diffuse liver disease without any sonographic detectable superimposed discrete focal abnormality.Sonographically unremarkable gallbladder and biliary tree. Admitted to general medicine floor Alcohol detoxification * Continue CIWA protocol with Ativan tapered from 1.5 to 1mg Q8 PO, and PRN per protocol * CIWA between 1-2 overnight.. * Continue B12 supplements, folic acid, thiamine, multivitamin. 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 * Need outpatient neurology follow up Transaminitis * AST/ALT at admission were 126/181 --> 126/215 -- TRENDING DOWN * we will trend them for now. Abdominal Ultrasound to rule out liver cirrhosis/Acites History of hypertension * Continue lisinopril and HCTZ BID * BP adequately controlled Hypothyroidism: levothyroxine 100mcg daily GERD: omeprazole DVT prophylaxis ALPS Code Status Full Code Problem List: 1. Alcohol dependence 2. Cerebellar atrophy Pain Ratin Pain Location: none Pain Goal: Pain 4 or less Pain Plan: Pain pathway Tomorrow's Labs & Rationales: None. Labs stable
[2016-09-01 15:16] VITALS: BP 144/80
[2016-09-01 22:55] VITALS: BP 110/70
[2016-09-02] VITALS: BP 110/70
[2016-09-02 06:48] VITALS: BP 112/70
--- NOTE | 2016-09-02 08:33 | PN- Housestaff ---
KEMI BUSCH,[facility] 09/02/16 0832: Assessment/Plan Assessment: Patient is a 55-year-old M with PMH significant for hypertension, GERD, hypothyroidism, EtOH dependence who presents to the hospital for alcohol detox. Abdominal ultrasound on June 14 shows diffuse heterogeneous abnormal echotexture is noted within the liver, consistent with diffuse liver disease without any sonographic detectable superimposed discrete focal abnormality.Sonographically unremarkable gallbladder and biliary tree. Admitted to general medicine floor Alcohol detoxification * Continue CIWA protocol with Ativan tapered from 1.5 to 1mg Q8 PO, and PRN per protocol * CIWA between 1-2 overnight.. * Continue B12 supplements, folic acid, thiamine, multivitamin. 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 * Need outpatient neurology follow up Transaminitis * AST/ALT at admission were 126/181 --> 126/215 -- TRENDING DOWN * we will trend them for now. Abdominal Ultrasound to rule out liver cirrhosis/Acites History of hypertension * Continue lisinopril and HCTZ BID * BP adequately controlled Hypothyroidism: levothyroxine 100mcg daily GERD: omeprazole DVT prophylaxis ALPS Code Status Full Code GLENN BUSCH,UMAIR 09/02/16 1000: Attending MD Review Statement Attending Statement Attending MD Statement: examined this patient, discuss w/resident/PA/BUYER INTERN, agreed w/resident/PA/BUYER INTERN, discussed with family, reviewed EMR data (avail), discussed with nursing Attending Assessment/Plan: Pt is doing markedly better. He is ambulating all over the unit with his girlfriend who works as an RN here. His CIWA is have been 0 and he is down to Ativan just 1 mg this morning with no when necessary's. He is stable to be discharged with outpatient follow-up. They're going to talk to psychiatry JOGGER OPERATOR to get an appointment for IOP. He doesn't need any more Ativan taper on discharge. We'll continue with his antihypertensives and I stressed the need for close outpatient follow-up for his prediabetic state, his lipids, close follow-up of his blood pressure and his transaminitis that is likely alcohol- related. Alcohol cessation stressed as well and plan is discharge.
[2016-09-02 09:54] VITALS: BP 118/70
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
--- NOTE | 2016-09-02 13:47 | Discharge Summary ---
Visit Information Visit Dates Admission Date: 08/28/16 Discharge Date: 09/02/2016 Hospital Course Course Attending Physician: AURORA LANE MD Primary Care Physician: DION BUSCH,[facility] Course: This is a 55-year-old gentleman with past medical history significant for hypertension, GERD, hypothyroidism, EtOH dependence who presents to the hospital for alcohol detox. Labs: Transaminitis, glucose 140 otherwise unremarkable, Abdominal ultrasound on June 14 shows diffuse heterogeneous abnormal echotexture is noted within the liver, consistent with diffuse liver disease without any sonographic detectable superimposed discrete focal abnormality.Sonographically unremarkable gallbladder and biliary tree. Patient was admitted to the general medical floor and following issues were addressed 1. Alcohol Withdrawl * IV Ativan per CIWA - Started PO Ativan 2 mg every 6 hr, tapered gradually. Patient will recieve his last dose of Ativan 1gm Q12 today. * Psych consulted * Social Work consulted - They saw the pt together and he was given an intake appointment for IOP for outpt treatment for ETOH abuse 2. 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 His B12 was on the lower side so we started him on B12 supplementation. Also his Head CT showed Cerebral Atrophy, Patient is advised to follow up with as an outpatient. 3. HTN, Hypothyroidism, GERD Will continue home medications. No acute changes. 4. Pre Diabetes Patient was found to have an elevated hemoglobin A1c less than 6.5 but about 5.8. Patient was talked to about prediabetic state and the fact that he needs close outpatient follow-up for the same. Allergies: Coded Allergies: NO KNOWN ALLERGIES (07/25/14) Significant Procedures: Head CT: No evidence for acute intracranial injury. There is mild cerebral atrophy, equivocally advanced in consideration of the patient's age. Abdomen Ultrasound: Mild hepatomegaly with evidence of hepatic steatosis. No sonographic findings of cirrhosis. No associated ascites. No evidence of cholelithiasis or biliary dilatation. The midline structures are obscured by bowel gas. Disposition Summary Disposition Principal Diagnosis: Alcohol Withdrawl. Additional Diagnosis: * Cerebral Atrophy * Numbness/tingling in upper and lower extremities * Transaminitis * Lower abdominal discomfort * History of hypertension * History of hypothyroidism * History of GERD Discharge Disposition: home or self care Discharge Instructions General Discharge Information Code Status: Full Code Patient's Diet: Regular Patient's Activity: As Tolerated. Follow-Up Instructions/Appts: Follow up with your PCP in 1 week[address] Follow up with Dr. Mo as an outpatient. Please call the number given for follow up with Dr. Schuster for outpatient therapy. Medications at Discharge Discharge Medications: Continue taking these medications: Lisinopril/Hydrochlorothiazide (Lisinopril-Hctz 20-25 MG Tab) 20 MG-25 MG TABLET 1 Tablet ORAL TWICE DAILY Comments: Last Taken: 09/02/16 Time: 0600AM Amlodipine Besylate (Amlodipine Besylate) 5 MG TABLET 1 Tablet ORAL DAILY Comments: Last Taken: 09/02/16 Time: 1000AM Esomeprazole (Nexium) 40 MG CAPSULE.DR 1 Capsule ORAL DAILY Comments: NOT GIVEN IN HOSPITAL Levothyroxine Sodium (Synthroid) 100 MCG TABLET 1 Tablet ORAL DAILY BEFORE BREAKFAST Comments: Last Taken: 09/02/16 Time: 1000AM Fluticasone Propionate (Flonase Allergy Relief) 50 MCG/ACTUATION SPRAY.SUSP 2 [place] Both sides of nose DAILY Comments: NOT GIVEN IN HOSPITAL Aspirin (Aspirin*) 81 MG TAB.CHEW 1 Tablet ORAL DAILY Comments: Last Taken: 09/02/16 Time: 1000AM Multivitamin (Daily Multiple Vitamin) 1 EACH TABLET 1 Tablet ORAL DAILY Comments: Last Taken: 09/02/16 Time: 1000AM Dicyclomine HCl (Dicyclomine HCl) 10 MG CAPSULE 1 Tablet ORAL 4 TIMES A DAY as needed for GI Comments: NOT GIVEN IN HOSPITAL Loratadine (Claritin) 10 MG TABLET 1 Tablet ORAL DAILY Comments: NOT GIVEN IN HOSPITAL Copies To: AKIL BUSCH,TRUPTI Roldan; ANTONIO MCCULLOUGH APRN, MD,ALYSON Attending MD Review Statement Documenting Attending: UMAIR ELIZABETH MD
== END 2016-09-02 13:39 | DRG 897 ==
LOC: ERH 05:55 → 2NB 11:12 → ERHI 11:12 → CANRESERV 12:06 → ENRESERV 12:06 → ENTRNSPT 12:42 → EDTRNSPT 12:51 → EDTRNSPTSTS 12:53 → 2NB 13:04 → CMPTRNSPT 13:14 → ENPENDDIS 09-02 12:50 → 2NB 09-02 13:39
PROVIDERS: Emergency Medicine; Internal Medicine; ADMIT Internal Medicine
DX: F10.239 Alcohol dependence with withdrawal, unspecified (principal); G62.1 Alcoholic polyneuropathy; G31.9 Degenerative disease of nervous system, unspecified; I10 Essential (primary) hypertension; E03.9 Hypothyroidism, unspecified; K21.9 Gastro-esophageal reflux disease without esophagitis; Y90.0 Blood alcohol level of less than 20 mg/100 ml; R73.03 Prediabetes; R74.0 Nonspecific elevation of levels of transaminase and lactic acid dehydrogenase [LDH]; F32.9 Major depressive disorder, single episode, unspecified
CPT/HCPCS: 36415; 80307; 82436; 96374; 97110-GO; 97116-GO; 97161-GP; 97530-GO; G0480; J3101; J3490